=== PATIENT | female | born 1955 | race Caucasian/White ===

== ENCOUNTER → 2018-07-17 | Outpatient (CLI) | payer MEDICARE, BC ==
[~2018-07-17] MED LIST: ACET500T68 PO; ACYC400T PO; CHOL100013 PO; CITA10TA4 PO; FAMO20TA5 PO; IBUP200T58 PO; LITH300C PO; TRIA10.8 NS
--- NOTE | 2018-07-18 06:07 | PAIN ---
DATE OF SERVICE: 07/17/2018 INITIAL CONSULTATION FOR PAIN CLINIC CHIEF COMPLAINT: Right side and flank pain. HISTORY OF PRESENT ILLNESS: This is a 63-year-old female who presents with history of pain in the mid back, upper back radiating to the right side to the midaxillary line and to the forward area of the lower rib cage on the right side anteriorly that has been present since 2012. The patient reports it is not the result of any specific injury or action that she is aware of. It is now constant pain that is stabbing, throbbing, aching in the region of the mid to lower thoracic spine and the torso and radiating to the right side as described. The patient reports it awakens her from sleep at least once at night, does not affect her bowel or bladder control or ability to walk. Over the years, she has had multiple procedures done with epidural injections at the T9-T10 level as she does have a small disk bulge at that level with a right-sided focal disk protrusion at T9-T10, only very minimal decrease in pain with a lumbar epidural steroid injection. She has also had facet joint injections at the same level with radiofrequency ablation, again no significant improvement. This was in 2018. The patient had chiropractic treatment counseling, physical therapy multiple times, still does exercises from this and has also had trigger point injections. She has tried gabapentin, meloxicam, Lyrica, none of which has helped for very long. The meloxicam was doing the best, and after about 3 years of taking it, the pain just overcame the ability of the medicine to decrease it and it was no longer working. The patient tried lidocaine patches, capsaicin, Advil, Tylenol, naproxen. Again, all with very minimal decrease in pain. The patient had the injections as recently as 2018 as well as the ablation in 2018, counseling as recently as May of this year. The patient rates her disability rate from 0-10, 10 being the worst; is a 7 with family and home responsibilities, recreation, social activity and occupation; 9 with sexual behavior; 1 with self-care and 8 with life support activities. The patient did have a recent MRI scan on 05/22/2018. Thoracic spine showing some facet degenerative change at T8-T9, T9-T10 and T10-T11 and a small, but enlarged right-sided focal disk protrusion at T9-T10 since exam of August 2017. The patient had recently seen a neurosurgeon who was not recommending any surgical intervention at this time. 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 PAST SURGICAL HISTORY: Includes in 1979, breast implants in 1989, removed in 2012. CURRENT MEDICATIONS: Include Tylenol, ibuprofen, Nasacort, famotidine, lithium, citalopram, vitamin D and acyclovir. ALLERGIES: THE PATIENT IS ALLERGIC TO SULFA, PREVACID AND PREDNISONE CAUSES HYPERACTIVITY. FAMILY HISTORY: Significant for type 1 diabetes, heart disease, colon cancer, depression. SOCIAL HISTORY: The patient does smoke, drinks 1 beer every 1-2 weeks. No any illegal, illicit or recreational drugs. He is , lives with her spouse. Lives locally in [place], [place]. 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 REVIEW OF SYSTEMS: Positive for those items mentioned in history of present illness. All systems reviewed and otherwise negative. It is complete, full and well documented on the patient's chart. PHYSICAL EXAMINATION: VITAL SIGNS: The patient's blood pressure is 147/79, pulse 70, respirations 16, temperature is 98.5 degrees Fahrenheit, height is 5 feet 4 inches and weight is 140 pounds. GENERAL: The patient is awake, alert, oriented, appropriate, very pleasant demeanor. HEENT: Head shows normocephalic, atraumatic. Extraocular movements are intact and symmetrical. Oral cavity: Mucous membranes moist and pink. Dentition is intact. NECK: Shows anterior throat supple without palpable lymphadenopathy noted. Swallow reflex symmetrical. CHEST: Shows normal on inspection. Previously well-healed surgical scar is noted from previous breast surgery. Breath sounds clear to auscultation bilaterally. HEART: Shows S1, S2 clear. No murmurs auscultated. ABDOMEN: Soft, nontender, nondistended. No palpable organomegaly is noted. No rebound or guarding demonstrated. BACK: Shows spine grossly in the midline, normal-appearing cervical lordotic curvature, thoracic kyphotic curvature and lumbar lordotic curvature. Cervical spine shows full rotational motion of cervical spine, both laterally, greater than 45 degrees, closer to 90 degrees, right and left as well as full extension, full forward flexion without difficulty or pain reported. The patient's low back shows good rotation as well greater than 10 degrees in right and left with extension greater than 10 degrees, forward flexion 45 degrees without pain reported. EXTREMITIES: The patient's thoracic spine shows normal thoracic curvature. Paraspinous muscle shows symmetrical on inspection with palpation shows some fairly significant tenderness just to the right of midline in the mid to lower thoracic distribution approximately in the T8 through T12 distribution on the right. There are no specific trigger points. There is no atrophy or hypertrophy compared to the left side. Both sides feel firm and normal on muscular palpation without specific radiation on palpation. This is true into the lateral aspect of the midaxillary line over the ribs on the right side with only very mild tenderness on the right compared to the left and without abnormality or difference in appearance of both the thoracic cage, right and left. The patient's upper extremities show deep tendon reflexes 2+ in biceps and triceps tendons. Concaver strength is 5/5 as is bicep and tricep flexion of the upper extremities. Peripheral pulses are 2+ in radial distribution. No peripheral edema is noted. Shoulder showed good rotation of motion without limitation or pain reported. The patient's lower extremities show deep tendon reflexes 2+ in the patellar, 1+ tendo-calcaneus tendons. Motor exam is strong with 5/5 dorsiflexion, extension, quadriceps and hamstring flexion and symmetrical and equal as well. Peripheral pulses are 1+ posterior tibia. No peripheral edema is noted bilaterally. SKIN: Shows warm and dry, good turgor. No edema. No sores, rashes or bruising. IMPRESSION: 1. This is a 63-year-old female with a long history of pain on right side in a radicular fashion in the thoracic distribution. 2. MRI scan of thoracic spine as noted. 3. History of depression. PLAN: Options were discussed with the patient and the patient's who accompanies her to visit today. She has had multiple interventional techniques for the right-sided thoracic radiculopathy for over many years without significant improvement for any type of long-term period of more than a month or so as well as multiple medications tried including gabapentin, Lyrica, multiple anti-inflammatories with meloxicam moderately helping for a while, recent neurosurgical evaluation without any surgical indication at this time for decompression with persistent thoracic radiculopathy on the right side. Options were discussed with the patient. We will preauthorize the patient for a spinal cord stimulator trial. As she has exhausted most other invasive and conservative measures at this time and again without the neurosurgical indication for operation, and she would like to pursue this, we discussed this in detail with the stimulator using anatomical models to describe the procedure as well. We will have her evaluated with our clinical psychologists for compatibility with implantable devices. Once this is evaluated, we will progress at that time and had preauthorization obtained for a spinal cord stimulator temporary trial and proceed from there. The patient understands and agrees and will follow up after psychological evaluation. SHLEBY ORTEGA MD DR: VIKAS/patrick JOB#: [id number] / [id number]
== END | disposition home or self-care (01) ==
LOC: PNCL 13:28
PROVIDERS: ATTEND Anesthesiology
DX: R10.9 Unspecified abdominal pain (principal); Z86.59 Personal history of other mental and behavioral disorders; Z88.2 Allergy status to sulfonamides; Z85.828 Personal history of other malignant neoplasm of skin; Z83.3 Family history of diabetes mellitus; Z82.49 Family history of ischemic heart disease and other diseases of the circulatory system; Z80.9 Family history of malignant neoplasm, unspecified
CPT/HCPCS: G0463